=== PATIENT | female | born 1985 | race Caucasian/White ===

== ENCOUNTER 2018-06-11 10:36 | Outpatient (CLI) | payer OTHER | END 2018-06-11 11:02 | disposition home or self-care (01) | LOC: RAD 10:36 | DX: M54.2 Cervicalgia (principal); N60.22 Fibroadenosis of left breast; K57.00 Diverticulitis of small intestine with perforation and abscess without bleeding; K85.90 Acute pancreatitis without necrosis or infection, unspecified ==